=== PATIENT | male | born 1985 | race Caucasian/White ===

== ENCOUNTER 2016-05-29 10:32 | Emergency (ER) | payer OTHER ==
[2016-05-29 10:36] VITALS: BP 133/75; PULSE 85; TEMP 98; BMI 24.9
--- NOTE | 2016-05-29 11:05 | PDOC ---
History of Present Illness - General Chief Complaint: Rash Stated Complaint: ALLERGIC RXN/ LOWER EXTREMITIES Time Seen by Provider: 05/29/16 11:04 History Source: Patient Exam Limitations: No Limitations - History of Present Illness Initial Comments: 05/29/16 11:05 CHIEF COMPLAINT: Rash HISTORY OF PRESENT ILLNESS: This is an otherwise healthy 31 year old male who presents for evaluation of one week of itchy, scaly rash to the bilateral inner thighs and lower back. He denies shortness of breath, tongue or lip swelling, throat tightness, or any other symptoms. He is unsure if he has used any new soaps. He denies new foods or medications. He has been applying hydrocortisone cream once a day with some relief. Vital signs on arrival are unremarkable. REVIEW OF SYSTEMS: GENERAL/CONSTITUTIONAL: No fever or chills. No weakness. No weight change. HEAD, EYES, EARS, NOSE AND THROAT: No change in vision. No ear pain or discharge. No sore throat. CARDIOVASCULAR: No chest pain or palpitations. RESPIRATORY: No cough, wheezing, or shortness of breath. GASTROINTESTINAL: No nausea, vomiting, diarrhea or constipation. GENITOURINARY: No dysuria, frequency, or change in urination. MUSCULOSKELETAL: No joint or muscle swelling or pain. No neck or back pain. SKIN: See HPI. NEUROLOGIC: No headache, vertigo, loss of consciousness, or loss of sensation. PSYCHIATRIC: No depression or anxiety. ENDOCRINE: No increased thirst. No abnormal weight change. HEMATOLOGIC/LYMPHATIC: No anemia, easy bleeding, or history of blood clots. ALLERGIC/IMMUNOLOGIC: No hives or skin allergy. No latex allergy. PHYSICAL EXAM: GENERAL: The patient is awake, alert, and fully oriented, in no acute distress. HEAD: Normal with no signs of trauma. ENT: Pupils equal, round and reactive to light, extraocular movements intact, sclera anicteric, conjunctiva clear. Neck supple. LUNGS: Clear to auscultation bilaterally. Normal excursion. No respiratory distress or use of accessory muscles. CV: RRR, S1/S2, no MRG. Cap refill < 2 sec. ABDOMEN: Soft, non-distended, non-tender. EXTREMITIES: Normal range of motion, no edema. NEUROLOGICAL: Normal speech, normal gait. CN II-XII grossly intact. PSYCH: Normal mood, normal affect. SKIN: Sparse, plaque-like rash to bilateral inner thighs and lower back. No pustules. No surrounding erythema or tenderness. Past History - Past Medical History Allergies/Adverse Reactions: Allergies Allergy/AdvReac Type Severity Reaction Status Date / Time No Known Allergies Allergy Verified 05/29/16 10:37 Home Medications: Ambulatory Orders Mineral Oil/Hydrophil Petrolat [Aquaphor Ointment] 396 gm TP QID #1 oint...g. Other medical history: DENIES - Surgical History Abdominal Surgery: Yes (HERNIA) - Psycho/Social/Smoking Cessation Hx Suicidal Ideation: No Smoking History: Never smoked Information on smoking cessation initiated: No *Physical Exam - Vital Signs Last Vital Signs Temp Pulse Resp BP Pulse Ox 98 F 85 18 133/75 98 05/29/16 10:34 05/29/16 10:34 05/29/16 10:34 05/29/16 10:34 05/29/16 10:34 Medical Decision Making - Medical Decision Making 05/29/16 11:34 A/P: 31 year old male with eczematous rash. -Continue hydrocortisone -Add Aquaphor -Derm referral provided *DC/Admit/Observation/Transfer Diagnosis at time of Disposition: Rash - Discharge Dispostion Disposition: HOME Condition at time of disposition: Stable Admit: No - Prescriptions Prescriptions: Mineral Oil/Hydrophil Petrolat [Aquaphor Ointment] 396 gm TP QID #1 oint...g. - Referrals Referrals: Reece Vaz [Non Staff, Medical] - () - Patient Instructions Printed Discharge Instructions: DI for Rash Additional Instructions: -Continue hydrocortisone cream and also use Aquaphor as prescribed -Follow up with Dr. Vaz, dermatology [address] [place] [address] -Return here for difficulty breathing or any other concerning symptoms
== END 2016-05-29 11:16 | disposition home or self-care (01) ==
LOC: JERFT 10:32
DX: R21 Rash and other nonspecific skin eruption (principal)
CPT/HCPCS: 99281-25